=== PATIENT | female | born 1985 | race Caucasian/White ===

== ENCOUNTER → 2024-09-02 07:39 | Outpatient (REF) | payer OTHER, SELFPAY | LOC: MRI 07:39 | PROVIDERS: ATTENDING PHYSICIAN Family Medicine | DX: M62.81 Muscle weakness (generalized) (principal); R47.1 Dysarthria and anarthria; D35.2 Benign neoplasm of pituitary gland; I10 Essential (primary) hypertension | CPT/HCPCS: 70551 ==

== ENCOUNTER → 2024-11-20 07:31 | Outpatient (REF) | payer OTHER, SELFPAY | LOC: HWRAD 07:31 | PROVIDERS: ATTENDING PHYSICIAN Internal Medicine Clinical Cardiac Electrophysiology; FAMILY PHYSICIAN Family Medicine | DX: Z87.59 Personal history of other complications of pregnancy, childbirth and the puerperium (principal) | CPT/HCPCS: 93975 ==